=== PATIENT | female | born 1970 | race Caucasian/White ===

== ENCOUNTER 2016-12-17 13:17 | Emergency (ER) | payer OTHER ==
--- NOTE | 2016-12-17 14:02 | ED ORDER SUMMARY ---
..... Patient: NANY CARRILLO OrderSheet [facility] VisitID: [id number] [place] [address] 46y, F Registration Date/Time: 12/17/2016 ORDER SHEET Weight: 74.8 kg (stated) Allergies: NKDA GENERAL ORDERS: - (irrigate L ear til insect removal) (13:50 12/17/2016 HBivens A.R.N.P.) (13:57 EHassan R.N.) MEDICATION ORDERS: Lidocaine Topical 1 application (NOW) (13:50 12/17/2016 HBivens A.R.N.P.) (Cancelled: Other13:58 EHalexandra R.N.) IV FLUIDS: ORDER SHEET NOTES: [Electronically signed by Christine Rosas R.N. (14:10 12/17/2016)] [Electronically signed by Erny LeosR.N.PNorris (14:44 12/17/2016)] [Electronically locked/signed by Christine Rosas R.N. (14:10 12/17/2016)]
--- NOTE | 2016-12-17 14:02 | ED NURSING NOTES ---
Clinical Report - Nurses [facility] [address] [place] [address] 12/17/2016 13:18 Patient: NANY CARRILLO TRIAGE Triage time 1327 PM. Acuity: LEVEL 5. Alert. No acute distress. BAYLEE COMA SCORE: [place] Coma Scale: 15- eyes open spontaneously (4); best verbal response- oriented x 4 (5); best motor response- obeys commands (6). --13:32 Christine Rosas R.N. 13:26 12/17/16. BP: 124/82 (regular adult cuff) taken on the left arm, via an automated monitor, while sitting. HR: 111. RR: 16. O2 saturation: 100%. Temp: 98.1 F (oral). Pain level now: 0/10. --13:32 Christine Rosas R.N. Chief Complaint: (Bug in Left ear). 13:26 PM. --14:10 Christine Rosas R.N. Weight: 74.8 kg stated. Height/Length: 61 inches Per Patient. BMI: 31.2. --13:27 Christine Rosas R.N. Medications Prilosec Oral. --13:32 Christine Rosas R.N. Allergies NKDA. --13:32 Christine Rosas R.N. Medication/allergy information source: the patient. --13:32 Christine Rosas R.N. History Arrived by private vehicle. Historian: patient. Primary physician (none). ( Pt states that she has an ant in her left ear, she has been sleeping on the floor of her friends house who has had a problem with ants. Pt states just happened about 1 hr, denies pain.). This started today. No fever, weakness, cough, difficulty breathing or skin rash. Denies muscle aches. 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 PAST MEDICAL HX: Immunizations: up-to-date. SOCIAL HX: Never smoker. Occasional alcohol use; consumes liquor drinks. No drug use. FALL RISK ASSESSMENT: Fall risk assessment completed. No fall risk identified. NUTRITIONAL RISK ASSESSMENT: The nutritional risk assessment revealed no deficiencies. FUNCTIONAL ASSESSMENT: Functional assessment: no impairments noted. LEARNING NEEDS ASSESSMENT: The learning needs assessment revealed no barriers. SKIN INTEGRITY ASSESSMENT: Skin integrity risk assessment completed. No skin integrity risk identified. --13:32 Christine Rosas R.N. PROBLEMS: Gastritis. --13:32 Christine Rosas R.N. ADDITIONAL SURGERIES: no known surgeries. Interventions ID band on patient. --13:32 Christine Rosas R.N. PHYSICAL ASSESSMENT Ambulatory to room. GENERAL / NEURO / PSYCH: Alert. Oriented X 4. Appears in no acute distress. Appears anxious. RESPIRATORY: Respirations not labored. SKIN: Skin intact. Skin is warm and dry. Normal skin turgor. --13:32 Christine Rosas R.N. NURSING PROGRESS NOTES The initial plan of care for this patient has been created This plan of care was discussed with the patient. Reassurance given. Two patient identifiers checked. Call light placed in reach. Bed placed in lowest position. Brakes of bed on. Patient ready for evaluation- chart flagged. --13:33 Christine Rosas R.N. ( One ant noted in ear canal). --13:34 Christine Rosas R.N. ( Left ear irrigated with 20cc warm water and peroxide until ant was washed out.). --14:01 Eren Pascal. DISPOSITION / DISCHARGE Departure time: 1405 PM. Condition at departure: improved and stable. The goals identified in the patient's plan of care were met. No learning barriers present. Discharge instructions provided and reviewed with the patient. Patient verbalized understanding. Written instructions provided in [place]. No warning instructions, medication instructions, treatment instructions or referrals given to the patient. The patient was discharged by the nurse practitioner. She was discharged home and unaccompanied at time of discharge. She left the Emergency Department ambulatory and via private vehicle. Patient driving. FALL RISK ASSESSMENT: Fall risk assessment completed. No fall risk identified. BAYLEE COMA SCORE: [place] Coma Scale: 15- eyes open spontaneously (4); best verbal response- oriented x 4 (5); best motor response- obeys commands (6). --14:09 Christine Rosas R.N. 14:00 12/17/16. BP: 124/85. HR: 87. RR: 16. O2 saturation: 100%. Temp: 97.6 F (oral). Pain level now: 0/10. --14:09 Christine Rosas R.N. Locked/Released at 12/17/2016 14:10 by Christine Rosas R.N.
--- NOTE | 2016-12-17 14:02 | ED CLINICAL REPORT ---
Clinical Report - Physicians/Mid Levels [facility] [address] [place] [address] 12/17/2016 13:18 Patient: NANY CARRILLO Time Seen: 13:41; initial patient contact, initial documentation, patient care assumed. Arrived- By private vehicle. Historian- patient. HISTORY OF PRESENT ILLNESS Chief Complaint: FOREIGN BODY. Modifying factors. Not worsened by anything. Not relieved by anything. This started just prior to arrival and is still present. Location- left ear. The patient has a foreign body (insect) in the left ear (ant). No ear pain or drainage, hearing loss or nasal discharge or congestion. No sinus pressure, ear trauma, recent barotrauma, tinnitus or sore throat. Similar symptoms previously: None. Recent medical care: Not recently seen/assessed. REVIEW OF SYSTEMS No fever. All systems otherwise negative, except as recorded above. PAST HISTORY See nurses notes. PROBLEMS: Gastritis. --13:32 Christine Rosas, RNorrisNNorris ADDITIONAL SURGERIES: no known surgeries. SOCIAL HISTORY Never smoker. Not exposed to second-hand smoke at home. No alcohol use or drug use. No recent travel. Is a local resident. FAMILY HISTORY Negative. ADDITIONAL NOTES The nursing notes have been reviewed with agreement regarding the chief complaint, HPI, ROS, PMH and patient medications and allergies. PHYSICAL EXAM Vital Signs: 12/17/2016 13:26 BP: 124/82. HR: 111. RR: 16. O2 saturation: 100%. Temp: 98.1 F. Pain level now: 0/10. Have been reviewed as abnormal and appear to be correct. Blood pressure normal. Tachycardic. Respiratory rate normal. Temperature normal. Oxygen saturation normal. Appearance: Alert. No acute distress. Eyes: Eyes normal inspection. Throat: Pharynx normal. Nose: Nose normal. Ear (right): Right ear normal. Right tympanic membrane normal. Ear (left): There is an insect in the external canal. Left ear abnormal. Left tympanic membrane normal. Neck: Normal inspection. Neck supple. Respiratory: No respiratory distress. Back: Normal inspection. Skin: Skin warm and dry. Normal skin color. No rash. Normal skin turgor. Extremities: Extremities exhibit normal ROM. No lower extremity edema. Neuro: Oriented X 3. No motor deficit. No sensory deficit. PROGRESS AND PROCEDURES Course of Care: 14:01 12/17/16. L ear reexamined, no fb, tm intact, no perforation. Patient counseled in person regarding the patient's stable condition and diagnosis. 14:01. Differential Diagnosis: Other possible considerations: fb, perforated tm, cerumen impaction, abrasion, aoe, aom. Above considerations are based on history and physical exam. Differential diagnosis was discussed with patient. Disposition: Discharged home in good and improved condition (14:01). Condition: good and stable. CLINICAL IMPRESSION Foreign body in the left ear. INSTRUCTIONS Warnings: GENERAL WARNINGS: Return or contact your physician immediately if your condition worsens or changes unexpectedly, if not improving as expected, or if other problems arise. Specifically return if problem worsens. Follow-up: Follow up with your doctor in about one week as needed. Call for an appointment. Summary of care provided to patient. Understanding of the discharge instructions verbalized by patient. (Electronically signed by Eryn Leos A.R.N.P. 12/17/2016 14:44)
--- NOTE | 2016-12-17 14:02 | ED ORDER SUMMARY ---
..... Patient: NANY CARRILLO OrderSheet [facility] VisitID: [id number] [place] [address] 46y, F Registration Date/Time: 12/17/2016 ORDER SHEET Weight: 74.8 kg (stated) Allergies: NKDA GENERAL ORDERS: - (irrigate L ear til insect removal) (13:50 12/17/2016 HBivens A.R.N.P.) (13:57 EHassan R.N.) MEDICATION ORDERS: Lidocaine Topical 1 application (NOW) (13:50 12/17/2016 HBivens A.R.N.P.) (Cancelled: Other13:58 EHalexandra R.N.) IV FLUIDS: ORDER SHEET NOTES: [Electronically signed by Christine Rosas R.N. (14:10 12/17/2016)] [Electronically signed by Eryn LeosR.N.PNorris (14:44 12/17/2016)] [Electronically locked/signed by Christine Rosas R.N. (14:10 12/17/2016)]
--- NOTE | 2016-12-17 14:02 | ED NURSING NOTES ---
Clinical Report - Nurses [facility] [address] [place] [address] 12/17/2016 13:18 Patient: NANY CARRILLO TRIAGE Triage time 1327 PM. Acuity: LEVEL 5. Alert. No acute distress. BAYLEE COMA SCORE: [place] Coma Scale: 15- eyes open spontaneously (4); best verbal response- oriented x 4 (5); best motor response- obeys commands (6). --13:32 Christine Rosas R.N. 13:26 12/17/16. BP: 124/82 (regular adult cuff) taken on the left arm, via an automated monitor, while sitting. HR: 111. RR: 16. O2 saturation: 100%. Temp: 98.1 F (oral). Pain level now: 0/10. --13:32 Christine Rosas R.N. Chief Complaint: (Bug in Left ear). 13:26 PM. --14:10 Christine Rosas R.N. Weight: 74.8 kg stated. Height/Length: 61 inches Per Patient. BMI: 31.2. --13:27 Christine Rosas R.N. Medications Prilosec Oral. --13:32 Christine Rosas R.N. Allergies NKDA. --13:32 Christine Rosas R.N. Medication/allergy information source: the patient. --13:32 Christine Rosas R.N. History Arrived by private vehicle. Historian: patient. Primary physician (none). ( Pt states that she has an ant in her left ear, she has been sleeping on the floor of her friends house who has had a problem with ants. Pt states just happened about 1 hr, denies pain.). This started today. No fever, weakness, cough, difficulty breathing or skin rash. Denies muscle aches. 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 PAST MEDICAL HX: Immunizations: up-to-date. SOCIAL HX: Never smoker. Occasional alcohol use; consumes liquor drinks. No drug use. FALL RISK ASSESSMENT: Fall risk assessment completed. No fall risk identified. NUTRITIONAL RISK ASSESSMENT: The nutritional risk assessment revealed no deficiencies. FUNCTIONAL ASSESSMENT: Functional assessment: no impairments noted. LEARNING NEEDS ASSESSMENT: The learning needs assessment revealed no barriers. SKIN INTEGRITY ASSESSMENT: Skin integrity risk assessment completed. No skin integrity risk identified. --13:32 Christine Rosas R.N. PROBLEMS: Gastritis. --13:32 Christine Rosas R.N. ADDITIONAL SURGERIES: no known surgeries. Interventions ID band on patient. --13:32 Christine Rosas R.N. PHYSICAL ASSESSMENT Ambulatory to room. GENERAL / NEURO / PSYCH: Alert. Oriented X 4. Appears in no acute distress. Appears anxious. RESPIRATORY: Respirations not labored. SKIN: Skin intact. Skin is warm and dry. Normal skin turgor. --13:32 Christine Rosas R.N. NURSING PROGRESS NOTES The initial plan of care for this patient has been created This plan of care was discussed with the patient. Reassurance given. Two patient identifiers checked. Call light placed in reach. Bed placed in lowest position. Brakes of bed on. Patient ready for evaluation- chart flagged. --13:33 Christine Rosas R.N. ( One ant noted in ear canal). --13:34 Christine Rosas R.N. ( Left ear irrigated with 20cc warm water and peroxide until ant was washed out.). --14:01 Eren Pascal. DISPOSITION / DISCHARGE Departure time: 1405 PM. Condition at departure: improved and stable. The goals identified in the patient's plan of care were met. No learning barriers present. Discharge instructions provided and reviewed with the patient. Patient verbalized understanding. Written instructions provided in [place]o. No warning instructions, medication instructions, treatment instructions or referrals given to the patient. The patient was discharged by the nurse practitioner. She was discharged home and unaccompanied at time of discharge. She left the Emergency Department ambulatory and via private vehicle. Patient driving. FALL RISK ASSESSMENT: Fall risk assessment completed. No fall risk identified. BAYLEE COMA SCORE: [place] Coma Scale: 15- eyes open spontaneously (4); best verbal response- oriented x 4 (5); best motor response- obeys commands (6). --14:09 Christine Rosas R.N. 14:00 12/17/16. BP: 124/85. HR: 87. RR: 16. O2 saturation: 100%. Temp: 97.6 F (oral). Pain level now: 0/10. --14:09 Christine Rosas R.N. Locked/Released at 12/17/2016 14:10 by Christine Rosas R.N.
--- NOTE | 2016-12-17 14:44 | ED DISCHARGE INSTRUCTIONS ---
Patient: NANY CARRILLO General Instructions [facility] VisitID: [id number] [place] [address] 46y, F Registration Date/Time: 12/17/2016 Foreign body in the left ear. INSTRUCTIONS Warnings: GENERAL WARNINGS: Return or contact your physician immediately if your condition worsens or changes unexpectedly, if not improving as expected, or if other problems arise. Specifically return if problem worsens. Follow-up: Follow up with your doctor in about one week as needed. Call for an appointment. Summary of care provided to patient. Understanding of the discharge instructions verbalized by patient. ADDITIONAL INFORMATION Foreign Body: Ear Canal (Removed) An object has been removed from the ear canal. This can lead to irritation and sometimes cause infection in the outer ear canal. Home Care: If prescription ear drops have been given, use these as directed. Do not get water in your ear (no swimming) for the next five days. You may use acetaminophen (Tylenol) or ibuprofen (Motrin, Advil) to control pain, unless another pain medicine was prescribed. [NOTE: If you have chronic liver or kidney disease or ever had a stomach ulcer or GI bleeding, talk with your doctor before using these medicines.] Follow Up with your doctor or this facility if symptoms get worse or do not get better over the next 3 days. Get Prompt Medical Attention if any of the following occur: Ear pain, itching, or discharge Redness or swelling of the outer ear Blood or fluid draining from the ear Persistent hearing loss Fever of 100.4F (38C) or higher, or as directed by your healthcare provider You have been given the following additional information: Foreign Body, Ear Canal (Removed) (Electronically signed by Eryn Leos A.R.N.P. 12/17/2016 14:44)
--- NOTE | 2016-12-17 14:44 | ED MED RECONCILIATION SUMMARY ---
Patient: NANY CARRILLO Medication Reconciliation Report [facility] VisitID: [id number] [address] [place] [address] 46y, F Registration Date/Time: 12/17/2016 Weight: 74.8 kg Height/Length: 61 in. BMI: 31.2 ALLERGIES: NKDA The patient's Home Medications are listed below: THE FOLLOWING MEDICATIONS NEED TO BE RECONCILED: Prilosec Oral The source(s) of the original Home Medication information: patient The following Medications were given to the patient in the Emergency Department: None. The following Medications were prescribed to the patient: None.
--- NOTE | 2016-12-17 14:44 | ED DISCHARGE INSTRUCTIONS ---
Patient: NANY CARRILLO General Instructions [facility] VisitID: [id number] [place] [address] 46y, F Registration Date/Time: 12/17/2016 Foreign body in the left ear. INSTRUCTIONS Warnings: GENERAL WARNINGS: Return or contact your physician immediately if your condition worsens or changes unexpectedly, if not improving as expected, or if other problems arise. Specifically return if problem worsens. Follow-up: Follow up with your doctor in about one week as needed. Call for an appointment. Summary of care provided to patient. Understanding of the discharge instructions verbalized by patient. ADDITIONAL INFORMATION Foreign Body: Ear Canal (Removed) An object has been removed from the ear canal. This can lead to irritation and sometimes cause infection in the outer ear canal. Home Care: If prescription ear drops have been given, use these as directed. Do not get water in your ear (no swimming) for the next five days. You may use acetaminophen (Tylenol) or ibuprofen (Motrin, Advil) to control pain, unless another pain medicine was prescribed. [NOTE: If you have chronic liver or kidney disease or ever had a stomach ulcer or GI bleeding, talk with your doctor before using these medicines.] Follow Up with your doctor or this facility if symptoms get worse or do not get better over the next 3 days. Get Prompt Medical Attention if any of the following occur: Ear pain, itching, or discharge Redness or swelling of the outer ear Blood or fluid draining from the ear Persistent hearing loss Fever of 100.4F (38C) or higher, or as directed by your healthcare provider You have been given the following additional information: Foreign Body, Ear Canal (Removed) (Electronically signed by Eryn Leos A.R.N.P. 12/17/2016 14:44)
--- NOTE | 2016-12-17 14:44 | ED MED RECONCILIATION SUMMARY ---
Patient: NANY CARRILLO Medication Reconciliation Report [facility] VisitID: [id number] [address] [place] [address] 46y, F Registration Date/Time: 12/17/2016 Weight: 74.8 kg Height/Length: 61 in. BMI: 31.2 ALLERGIES: NKDA The patient's Home Medications are listed below: THE FOLLOWING MEDICATIONS NEED TO BE RECONCILED: Prilosec Oral The source(s) of the original Home Medication information: patient The following Medications were given to the patient in the Emergency Department: None. The following Medications were prescribed to the patient: None.
--- NOTE | 2016-12-17 14:44 | ED MAR SUMMARY ---
..... Medication Administration Record [facility] [address] [place] [place], [place] [id number] Patient: NANY CARRILLO Visit ID: [id number] 46y, F Weight: 74.8 kg Height/Length: 61 in BMI: 31.2 ALLERGIES: NKDA
--- NOTE | 2016-12-17 14:44 | ED MAR SUMMARY ---
..... Medication Administration Record [facility] [address], [place] [id number] Patient: NANY CARRILLO Visit ID: [id number] 46y, F Weight: 74.8 kg Height/Length: 61 in BMI: 31.2 ALLERGIES: NKDA
== END 2016-12-17 14:05 | disposition home or self-care (01) ==
LOC: ED SRH 13:17
DX: T16.2XXA Foreign body in left ear, initial encounter (principal); X58.XXXA Exposure to other specified factors, initial encounter; Y92.9 Unspecified place or not applicable; Y93.9 Activity, unspecified; Y99.9 Unspecified external cause status